=== PATIENT | female | born 1930 | race Caucasian/White ===

== ENCOUNTER 2017-03-02 11:08 | Inpatient (IN) | payer OTHER, MEDICARE ==
[2017-03-02 13:04] VITALS: BMI 26.9
[2017-03-02 13:30] LABS: BASOPHILS % (AUTO) 0.6 % (0.2-1.0); EOSINOPHILS % (AUTO) 0.2 % (0.9-2.9); HEMATOCRIT 32.4 % (36.0-47.0); HEMOGLOBIN 11.6 g/dL (12.0-16.0); LYMPHOCYTES # (AUTO) 0.8 X10^3/uL (1.3-2.9); LYMPHOCYTES % (AUTO) 14.1 % (21.0-51.0); MEAN CORPUSCULAR HEMOGLOBIN 29.3 pg (27.0-34.0); MEAN CORPUSCULAR HGB CONC 35.7 g/dL (33.0-35.0); MEAN CORPUSCULAR VOLUME 81.9 fL (80.0-100.0); MEAN PLATELET VOLUME 8.1 fL (7.4-11.0); MONOCYTES # (AUTO) 0.5 x10^3/uL (0.3-0.8); MONOCYTES % (AUTO) 9.5 % (0.0-13.0); NEUTROPHILS # (AUTO) 4.3 x10^3/uL (2.2-4.8); NEUTROPHILS % (AUTO) 75.6 % (42.0-75.0); PLATELET COUNT 156 X10^3/uL (150.0-450.0); RED BLOOD COUNT 3.95 X10^6/uL (3.5-5.4); RED CELL DISTRIBUTION WIDTH 14.8 % (11.6-16.5); WHITE BLOOD COUNT 5.7 X10^3/uL (3.6-10.0)
[2017-03-02] MEDS: NS 1000 ML 1,000 ML IV SCH (13:31)
[2017-03-02 13:43] LABS: ALANINE AMINOTRANSFERASE 30 Units/L (12-78); ALBUMIN 3.4 g/dL (3.4-5.0); ALKALINE PHOSPHATASE 74 Units/L (46-116); ASPARTATE AMINO TRANSFERASE 25 Units/L (15-37); BLOOD UREA NITROGEN 16 mg/dL (7-18); CALCIUM 8.8 mg/dL (8.5-10.1); CARBON DIOXIDE 26.9 mmol/L (21-32); CHLORIDE 93 mmol/L (98-107); CREATININE 1.19 mg/dL (0.55-1.02); GLUCOSE 108 mg/dL (65-99); SODIUM 130 mmol/L (136-145); eGFR BLACK RACES 55 (>60); eGFR NON BLACK RACES 46 (>60)
[2017-03-02] MEDS ORDERED: NS 100 ML IV 100 ML IV ONE (15:34)
--- NOTE | 2017-03-02 16:04 | RAD ---
HISTORY: Shortness of breath. Study: PA and lateral chest. Comparison: CT chest dated September 07, 2016. Findings: The trachea is midline. Postsurgical changes status post CABG. Multilead left chest cardiac pacemake r. The cardiac silhouette is unremarkable. Bibasilar scarring versus atelectasis. No obvious focal consolidation, pleural effusion, or pneumothorax.. The bony thorax is unremarkable. IMPRESSION: 1. No acute cardiopulmonary disease. Reported By:
--- NOTE | 2017-03-02 16:19 | CT ---
CT OF THE ABDOMEN AND PELVIS WITH CONTRAST HISTORY: Abdominal pain with fever and chills. Comparison: 09/07/2016 Technique: Multiple axial images of the abdomen and pelvis were obtained from the lung bases to the pubic symph ysis follow the administration of IV contrast. Dose reduction techniques including Automated Exposu re Control (AEC) and adjustment of mA and kV were utlized. Findings: The heart is normal in size. Severe diffuse Coronary and valvular calcifications. Lung bases are isael ar without focal consolidation, pleural effusion or pneumothorax. Liver and spleen are normal in size, enhancement characteristics and contour. No focal lesions. The portal vein is patent. No ductal dilitation. Gallbladder is present. No calcified gallstones or gall bladder wall thickening. The pancreas is unremarkable. Adrenal glands are normal. Kidneys enhance sy mmetrically without hydronephrosis or nephrolithiasis. Bilateral simple renal cysts The rectosigmoid colon is decompressed however does appear mildly thick walled with some hyperemia o f the associated vasculature.. No abnormal appearing mesenteric or retroperitoneal lymph nodes. No free fluid or fluid collections. The bladder is normal in appearance. Uterus and ovaries appear to be absent. No free fluid or abnorm al pelvic lymph nodes. No aggressive osseous lesions. IMPRESSION: 1. Possible inflammation of the rectosigmoid colon. Correlate clinically. 2. Severe coronary vascular disease. Reported By:
[2017-03-02 17:22] LABS: BILIRUBIN,URINE NEGATIVE (NEGATIVE); BLOOD/HEMOGLOBIN,URINE 4+ (NEGATIVE); GLUCOSE, URINE NEGATIVE (NEGATIVE); KETONES,URINE NEGATIVE (NEGATIVE); LEUKOCYTE ESTERASE ,URINE 3+ (NEGATIVE); NITRITES,URINE NEGATIVE (NEGATIVE); PROTEIN,URINE 1+ (NEGATIVE); UROBILINOGEN,URINE NORMAL (NORMAL)
[2017-03-02 17:57] LABS: APPEARANCE,URINE SLIGHTLY HAZY (CLEAR); BACTERIA,URINE TRACE /HPF (NEGATIVE); COLOR,URINE YELLOW (YELLOW); SQUAMOUS EPITHELIAL CELL,UR RARE /HPF (NEGATIVE)
[2017-03-02 19:21] LABS: CRYPTOSPORIDIUM PARVUM ANTIGEN NEGATIVE (NEGATIVE); GIARDIA LAMBLIA ANTIGEN NEGATIVE (NEGATIVE)
[2017-03-02 19:26] LABS: STOOL FOR WBC Few
[2017-03-03] MEDS: TYLENOL 325 MG TAB PO PRN ×2 (03:00→14:58)
[2017-03-03] MEDS: NS 1000 ML 1,000 ML IV SCH ×2 (03:01→22:44)
[2017-03-03 05:26] LABS: BASOPHILS % (AUTO) 0.5 % (0.2-1.0); EOSINOPHILS % (AUTO) 0.1 % (0.9-2.9); HEMATOCRIT 29.1 % (36.0-47.0); HEMOGLOBIN 10.6 g/dL (12.0-16.0); LYMPHOCYTES % (AUTO) 19.8 % (21.0-51.0); MEAN CORPUSCULAR HEMOGLOBIN 29.7 pg (27.0-34.0); MEAN CORPUSCULAR HGB CONC 36.4 g/dL (33.0-35.0); MEAN CORPUSCULAR VOLUME 81.6 fL (80.0-100.0); MEAN PLATELET VOLUME 8.6 fL (7.4-11.0); MONOCYTES # (AUTO) 0.7 x10^3/uL (0.3-0.8); MONOCYTES % (AUTO) 13.4 % (0.0-13.0); NEUTROPHILS # (AUTO) 3.4 x10^3/uL (2.2-4.8); NEUTROPHILS % (AUTO) 66.2 % (42.0-75.0); PLATELET COUNT 139 X10^3/uL (150.0-450.0); RED BLOOD COUNT 3.57 X10^6/uL (3.5-5.4); RED CELL DISTRIBUTION WIDTH 14.9 % (11.6-16.5); WHITE BLOOD COUNT 5.1 X10^3/uL (3.6-10.0)
[2017-03-03 05:29] LABS: ALANINE AMINOTRANSFERASE 24 Units/L (12-78); ALKALINE PHOSPHATASE 63 Units/L (46-116); ASPARTATE AMINO TRANSFERASE 20 Units/L (15-37); BLOOD UREA NITROGEN 14 mg/dL (7-18); CHLORIDE 94 mmol/L (98-107); COR CA(FOR HYPOALB) 8.8 mg/dL (8.5-10.1); COR NA(FOR HYPERGLY) 130 mmol/L (136-145); CREATININE 1.04 mg/dL (0.55-1.02); GLUCOSE 112 mg/dL (65-99); SODIUM 130 mmol/L (136-145); TOTAL PROTEIN 6.3 g/dL (6.4-8.2); eGFR BLACK RACES > 60 (>60); eGFR NON BLACK RACES 54 (>60)
[2017-03-03] MEDS ORDERED: K-LYTE EFFERVESCENT PO PRN (05:33)
[2017-03-03] MEDS ORDERED: K-DUR TAB 20 MEQ PO PRN (05:33)
[2017-03-03] MEDS ORDERED: K-RIDER 10 MEQ/NS 100 ML 10 MEQ/100 ML BAG IV PRN (05:33)
[2017-03-03] MEDS: POTASSIUM CHLORIDE LIQ 20 MEQ UDC PO PRN (05:46)
[2017-03-03 06:22] LABS: BAND NEUTROPHILS % 5 % (0-10); BASOPHILS % (MANUAL) 0 % (0-1)
[2017-03-03 06:23] LABS: PLATELET MORPHOLOGY COMMENT NORMAL (NORMAL)
[2017-03-03 07:14] LABS: ERYTHROCYTE SEDIMENTATION RATE 41 MM/HOUR (0-20)
[2017-03-03] MEDS ORDERED: DILTIAZEM HCL COATED BEADS 240 MG PO SCH (10:00)
[2017-03-03] MEDS ORDERED: PATIENT'S HOME MEDICATION (Citalopram Hydrobromide [Celexa 10 Mg] 10 MG) PO SCH (10:00)
[2017-03-03] MEDS: CIPRO IV 400 MG PREMIX* 400 MG/200 ML IV.SOLN. IV SCH ×2 (11:01→20:25)
[2017-03-03] MEDS: CARDIZEM CD 240 MG PO SCH (11:02)
[2017-03-03] MEDS: CELEXA PO SCH (11:02)
[2017-03-03] MEDS: LOMOTIL PO PRN ×2 (11:02→14:32)
[2017-03-03] MEDS: ZOCOR TAB 20 MG PO SCH (11:02)
[2017-03-03] MEDS ORDERED: ZOFRAN INJ 4 MG VIAL IVP PRN (12:48)
--- NOTE | 2017-03-03 14:06 | DR.H&P ---
H&P - History & Physical for Day of: H&P Date: 03/02/17 - Chief Complaint Chief Complaint: Diarrhea - Allergies Allergies/Adverse Reactions: Allergies Allergy/AdvReac Type Severity Reaction Status Date / Time MS Solis AdvReac Mild Verified 03/02/17 12:45 [From Phenergan] - History of Present Illness History of Present Illness: Patient is a 86yo female who presented to the hospital as a direct admit. Patient has been having diarrhea, fever and chill and appear dehydrated. Patient admitted for dehydration and diarrhea. We are going to start her on NS@75 and order labs as well as abdomen pelvis ct and further evaluate. - Past Medical History Past Medical History: Arthritis, Coronary Artery Disease, Depression, GERD Additional Medical History: pacemaker, valvular heart disease - Past Surgical History Surgical History: Hysterectomy - Family History Family Medical History: Diabetes Mellitus, Hypertension - Social History Does patient currently use any type of tobacco product: No Have you used tobacco products in the last 12 months: No Type of Tobacco Use: None Does any household member use tobacco: No Alcohol Use: None Drug Use: None - Medications Home Medications: Citalopram Hydrobromide [Celexa 10 mg] 10 mg PO DAILY 03/02/17 [History Confirmed 03/02/17] Diltiazem HCl Coated Beads [Diltiazem HCl ER] 240 mg PO DAILY 03/02/17 [History Confirmed 03/02/17] Hydrochlorothiazide [HYDROCHLOROTHIAZIDE 25 MG TAB *] 25 mg PO DAILY 03/02/17 [ History Confirmed 03/02/17] Metoprolol Tartrate [LOPRESSOR 50 MG *] 50 mg PO BID 03/02/17 [History Confirmed 03/02/17] Ropinirole HCl [REQUIP 0.25 MG *] 0.25 mg PO HS 03/02/17 [History Confirmed ] Simvastatin 20 mg PO DAILY 03/02/17 [History Confirmed 03/02/17] Sitagliptin Phosphate [JANUVIA 100 MG *] 100 mg PO DAILY 03/02/17 [History Confirmed 03/02/17] Warfarin Sodium 7.5 mg PO HS 03/02/17 [History Confirmed 03/02/17] - Review of Systems Constitutional: Fever, Weakness Eyes: No Symptoms Reported ENT: No Symptoms Reported Respiratory: No Symptoms Reported Cardiovascular: No Symptoms Reported Gastrointestinal: Diarrhea Genitourinary: No Symptoms Reported Musculoskeletal: No Symptoms Reported Skin: No Symptoms Reported Neurological: No Symptoms Reported - Physical Exam Vital Signs: Temperature 98.4 F Pulse Rate [Left Brachial] 70 Respiratory Rate 18 Blood Pressure [Left Arm] 128/59 O2 Sat by Pulse Oximetry 95 Oriented: Normal Eyes: Normal Ear: Normal Nose: Normal Throat: Normal Respiratory: Clear Throughout Cardiovascular: Normal : Normal Auscultation: Bowel Sounds: Increased Palpation: Normal Tenderness: Diffuse Skin: Decreased Turgur Musculoskeletal: Normal Psychiatric: Normal Mood Description: Calm, Appropriate Affect: Normal Speech Pattern: Clear, Appropriate - Assessment/Plan (1) Diarrhea Qualifiers: Diarrhea type: D Status: Acute Plan: NS@75 (2) Dehydration Status: Acute Plan: NS@75, CBC, CMP (3) Fever Qualifiers: Fever type: F Encounter type: E Status: Acute Plan: CBC, CMP, Abdomen CT
--- NOTE | 2017-03-03 14:24 | PCM.PROG ---
Progress Note - Progress Note for Day of Date: 03/03/17 - Subjective Subjective: Patient is a 86yo admitted for dehydration and diarrhea. Patient is on NS @ 75ml/hr. Upon rounds patient is on the toilet she states she is having to sit there for 30 minutes at the time and is very weak. We are going to start her on lomotil QID PRN Diarrhea and change her to a clear liquid diet. Vital signs this am 97.9, 70, 18, 95% on RA 122/60. Patient did spike a fever last night of 1012 we are going to start her on Cipro 400mg IV. Labs are within normal limits with the exception of Hgb 10.6, hct 29.1, MCHC 36.4, Plt Count 139 , Lymph% 19.8, Mcclain% 13.4, Lymph# 1.0, INR 1.67, Sodium 130, Potassium 2.8, Chloride 94, creatinine 1.04, est GFR 54, Glucose 112, CRP 98.20, Total Protein 6.3Albumin 3.0, Albumin/Globulin Ratio 0.9. Stool was positive for blood, negative for WBC, Cdiff, and O&P. Abdomen and pelvis CT shows inflammation of the rectosigmoid colon, sever coronary vascular disease. Patient is being started on the potassium replacement protocol for hypokalemia potassium of 2.8. We are also going to increase her fluids to 100ml/hr. In concern with the severe coronary vascular disease we will follow up on this out patient with ECHO and stress test. We will follow up with patient in the am with repeat labs. We are going to continue her home medications with the exception of her Januvia and Lopressor due to her dehydration. - Past Medical Family Social History Past Med/Fam/Surg Hx: No changes since H&P Allergies: Allergies MS Promethazine [From Phenergan] Adverse Reaction (Mild, Verified 03/02/17 12:45 ) - Review of Systems ROS: No change since H&P - Vital Signs and I&O's Vital Signs: 97.9, 70, 18, 95% on RA 122/60. Intake and Output: Intake & Output 03/01/17 03/02/17 03/03/17 03/04/17 11:59 11:59 11:59 11:59 Intake Total 1286 Output Total 450 Balance 836 - Physical Exam Oriented: Normal Eyes: Normal Ear: Normal Nose: Normal Throat: Normal Respiratory: Normal Cardiovascular: Normal : Normal Auscultation: Bowel Sounds: Increased Palpation: Normal Tenderness: Diffuse Skin: Decreased Turgur Musculoskeletal: Instability Psychiatric: Normal Mood Description: Calm, Appropriate Affect: Normal Speech Pattern: Clear, Appropriate - Laboratory and Diagnostics Result Diagrams: 03/03/17 03:25 03/03/17 08:44 Labs: 03/02/17 12:46 Urine,Clean Catch Urine Culture - Preliminary 03/02/17 18:20 Stool Stool Culture - Preliminary 03/02/17 18:20 Stool - Final Laboratory WBC 5.1 X10^3/uL (3.6-10.0) 03/03/17 03:25 RBC 3.57 X10^6/uL (3.5-5.4) 03/03/17 03:25 Hgb 10.6 g/dL (12.0-16.0) L 03/03/17 03:25 Hct 29.1 % (36.0-47.0) L 03/03/17 03:25 MCV 81.6 fL (80.0-100.0) 03/03/17 03:25 MCH 29.7 pg (27.0-34.0) 03/03/17 03:25 MCHC 36.4 g/dL (33.0-35.0) H 03/03/17 03:25 RDW 14.9 % (11.6-16.5) 03/03/17 03:25 Plt Count 139 X10^3/uL (150.0-450.0) L 03/03/17 03:25 Plt Count Comment Adequate (ADEQUATE) 03/03/17 03:25 MPV 8.6 fL (7.4-11.0) 03/03/17 03:25 Neut % 66.2 % (42.0-75.0) 03/03/17 03:25 Lymph % 19.8 % (21.0-51.0) L 03/03/17 03:25 Mcclain % 13.4 % (0.0-13.0) H 03/03/17 03:25 Eos % 0.1 % (0.9-2.9) L 03/03/17 03:25 Baso % 0.5 % (0.2-1.0) 03/03/17 03:25 Neut # 3.4 x10^3/uL (2.2-4.8) 03/03/17 03:25 Lymph # 1.0 X10^3/uL (1.3-2.9) L 03/03/17 03:25 Mcclain # 0.7 x10^3/uL (0.3-0.8) 03/03/17 03:25 Eos # 0.0 x10^3/uL (0.0-0.2) 03/03/17 03:25 Baso # 0.0 X10^3/uL (0.0-0.1) 03/03/17 03:25 Absolute Nucleated RBC 0.1 /100WBC 03/03/17 03:25 Total Counted 100 03/03/17 03:25 Neutrophils % (Manual) 61 % (39-76) 03/03/17 03:25 Band Neutrophils % 5 % (0-10) 03/03/17 03:25 Lymphocytes % (Manual) 25 % (13-43) 03/03/17 03:25 Monocytes % (Manual) 9 % (4-9) 03/03/17 03:25 Eosinophils % (Manual) 0 % (0-6) 03/03/17 03:25 Basophils % (Manual) 0 % (0-1) 03/03/17 03:25 Plt Morphology Comment Normal (NORMAL) 03/03/17 03:25 RBC Morphology Normal (NORMAL) 03/03/17 03:25 ESR 41 MM/HOUR (0-20) H 03/03/17 03:25 INR Target Range - 03/03/17 03:25 INR 1.67 (0.8-1.3) H 03/03/17 03:25 Sodium 130 mmol/L (136-145) L 03/03/17 03:25 Corrected Sodium 130 mmol/L (136-145) L 03/03/17 03:25 Potassium 3.9 mmol/L (3.5-5.1) 03/03/17 08:44 Chloride 94 mmol/L (98-107) L 03/03/17 03:25 Carbon Dioxide 22.0 mmol/L (21-32) 03/03/17 03:25 BUN 14 mg/dL (7-18) 03/03/17 03:25 Creatinine 1.04 mg/dL (0.55-1.02) H 03/03/17 03:25 Est GFR (MDRD) Af Amer > 60 (>60) 03/03/17 03:25 Est GFR (MDRD) Non-Af 54 (>60) L 03/03/17 03:25 Glucose 112 mg/dL (65-99) H 03/03/17 03:25 Calcium 8.0 mg/dL (8.5-10.1) L 03/03/17 03:25 Corrected Calcium 8.8 mg/dL (8.5-10.1) 03/03/17 03:25 Total Bilirubin 0.50 mg/dL (0.2-1.0) 03/03/17 03:25 AST 20 Units/L (15-37) 03/03/17 03:25 ALT 24 Units/L (12-78) 03/03/17 03:25 Alkaline Phosphatase 63 Units/L (46-116) 03/03/17 03:25 C-Reactive Protein 98.20 mg/L (0-3.0) H 03/03/17 03:25 Total Protein 6.3 g/dL (6.4-8.2) L 03/03/17 03:25 Albumin 3.0 g/dL (3.4-5.0) L 03/03/17 03:25 Globulin 3.3 g/dL (2.5-4.5) 03/03/17 03:25 Albumin/Globulin Ratio 0.9 Ratio (1.1-2.1) L 03/03/17 03:25 Specimen Type Clean catch urine 03/02/17 12:46 Urine Color Yellow (YELLOW) 03/02/17 12:46 Urine Appearance Slightly hazy (CLEAR) 03/02/17 12:46 Urine pH 5.0 (5.0 - 8.0) 03/02/17 12:46 Ur Specific Potter 1.010 (1.000-1.030) 03/02/17 12:46 Urine Protein 1+ (NEGATIVE) 03/02/17 12:46 Urine Glucose (UA) Negative (NEGATIVE) 03/02/17 12:46 Urine Ketones Negative (NEGATIVE) 03/02/17 12:46 Urine Occult Blood 4+ (NEGATIVE) 03/02/17 12:46 Urine Nitrite Negative (NEGATIVE) 03/02/17 12:46 Urine Bilirubin Negative (NEGATIVE) 03/02/17 12:46 Urine Urobilinogen Normal (NORMAL) 03/02/17 12:46 Ur Leukocyte Esterase 3+ (NEGATIVE) 03/02/17 12:46 Urine RBC 5-10 /HPF (NEGATIVE) 03/02/17 12:46 Urine WBC 15-20 /HPF (NEGATIVE) 03/02/17 12:46 Ur Squamous Epith Cells Rare /HPF (NEGATIVE) 03/02/17 12:46 Urine Bacteria Trace /HPF (NEGATIVE) 03/02/17 12:46 Ur Culture Indicated? Yes/culture set up 03/02/17 12:46 Stool Description 160 g. liquid/brown 03/02/17 18:20 Stl Occult Blood (IFOB) Positive (NEGATIVE) A 03/02/17 18:20 Stool for White Cells Few (None) 03/02/17 18:20 Stl C. diff Tox B Gene Negative (NEGATIVE) 03/02/17 18:20 Stl C. diff [id number] Negative (NEGATIVE) 03/02/17 18:20 Cryptosporid parvum Ag Negative (NEGATIVE) 03/02/17 18:20 E. histolytica Antigen Negative (NEGATIVE) 03/02/17 18:20 Giardia lamblia Ag Negative (NEGATIVE) 03/02/17 18:20 Radiology Reviewed: Yes - Plan (1) Diarrhea Status: Acute Qualifiers: Diarrhea type: D Plan: lomotil QID PRN (2) Dehydration Status: Acute Plan: NS@100, CBC, CMP (3) Fever Status: Acute Qualifiers: Fever type: F Encounter type: E Plan: CBC, CMP (4) Diabetes mellitus, type 2 Status: Acute Qualifiers: Diabetes mellitus complication status: D Diabetes mellitus complication detail: D Diabetic retinopathy severity: D Proliferative retinopathy type: P Diabetes mellitus macular edema: D Diabetes mellitus terminal operations supervisor insulin use : D Laterality: L Chronic kidney disease stage: C Plan: monitor blood glucose (5) Hyperlipidemia Status: Acute Qualifiers: Hyperlipidemia type: H Plan: continue crestor
[2017-03-03] MEDS: REQUIP PO SCH (20:25)
[2017-03-03] MEDS: COUMADIN TAB 7.5 MG PO SCH (20:25)
[2017-03-03 22:30] LABS: CRYPTOSPORIDIUM PARVUM ANTIGEN NEGATIVE (NEGATIVE); GIARDIA LAMBLIA ANTIGEN NEGATIVE (NEGATIVE)
[2017-03-03 22:33] LABS: STOOL FOR WBC Rare
[2017-03-04] MEDS: NS 1000 ML 1,000 ML IV SCH ×4 (00:22→15:07)
[2017-03-04] MEDS: LOMOTIL PO PRN ×2 (03:15→09:33)
[2017-03-04 05:51] LABS: BASOPHILS % (AUTO) 0.5 % (0.2-1.0); EOSINOPHILS % (AUTO) 0.8 % (0.9-2.9); HEMATOCRIT 27.5 % (36.0-47.0); HEMOGLOBIN 9.8 g/dL (12.0-16.0); LYMPHOCYTES # (AUTO) 0.8 X10^3/uL (1.3-2.9); LYMPHOCYTES % (AUTO) 20.3 % (21.0-51.0); MEAN CORPUSCULAR HEMOGLOBIN 29.3 pg (27.0-34.0); MEAN CORPUSCULAR HGB CONC 35.8 g/dL (33.0-35.0); MEAN CORPUSCULAR VOLUME 81.8 fL (80.0-100.0); MEAN PLATELET VOLUME 8.6 fL (7.4-11.0); MONOCYTES # (AUTO) 0.6 x10^3/uL (0.3-0.8); MONOCYTES % (AUTO) 14.1 % (0.0-13.0); NEUTROPHILS # (AUTO) 2.7 x10^3/uL (2.2-4.8); NEUTROPHILS % (AUTO) 64.3 % (42.0-75.0); PLATELET COUNT 117 X10^3/uL (150.0-450.0); RED BLOOD COUNT 3.36 X10^6/uL (3.5-5.4); RED CELL DISTRIBUTION WIDTH 15.1 % (11.6-16.5); WHITE BLOOD COUNT 4.2 X10^3/uL (3.6-10.0)
[2017-03-04 06:00] LABS: ALANINE AMINOTRANSFERASE 22 Units/L (12-78); ALBUMIN 2.6 g/dL (3.4-5.0); ALKALINE PHOSPHATASE 55 Units/L (46-116); ASPARTATE AMINO TRANSFERASE 24 Units/L (15-37); BLOOD UREA NITROGEN 8 mg/dL (7-18); CALCIUM 7.9 mg/dL (8.5-10.1); CARBON DIOXIDE 22.3 mmol/L (21-32); CHLORIDE 100 mmol/L (98-107); COR NA(FOR HYPERGLY) 133 mmol/L (136-145); CREATININE 0.78 mg/dL (0.55-1.02); GLUCOSE 116 mg/dL (65-99); SODIUM 133 mmol/L (136-145); TOTAL PROTEIN 5.8 g/dL (6.4-8.2); eGFR BLACK RACES > 60 (>60); eGFR NON BLACK RACES > 60 (>60)
[2017-03-04 06:24] LABS: BAND NEUTROPHILS % 11 % (0-10); PLATELET MORPHOLOGY COMMENT NORMAL (NORMAL)
[2017-03-04] MEDS: CELEXA PO SCH (08:57)
[2017-03-04] MEDS: CARDIZEM CD 240 MG PO SCH (08:57)
[2017-03-04] MEDS: CIPRO IV 400 MG PREMIX* 400 MG/200 ML IV.SOLN. IV SCH (08:58)
[2017-03-04] MEDS: ZOCOR TAB 20 MG PO SCH (08:58)
[2017-03-04] MEDS: POTASSIUM CHLORIDE LIQ 20 MEQ UDC PO PRN (10:31)
[2017-03-04] MEDS: FLAGYL TAB 500 MG PO SCH ×2 (15:22→22:05)
[2017-03-04] MEDS: BUTT CREAM (COMPOUND) TOP SCH ×3 (15:23→22:06)
[2017-03-04] MEDS: LOMOTIL PO SCH ×2 (17:00→22:05)
[2017-03-04] MEDS: CIPRO IV 200 MG PREMIX* 200 MG/100 ML BAG IV SCH (22:02)
[2017-03-04] MEDS: REQUIP PO SCH (22:05)
[2017-03-04] MEDS: QUESTRAN PO SCH (22:05)
[2017-03-04] MEDS: COUMADIN TAB 7.5 MG PO SCH (22:06)
[2017-03-05] MEDS: NS 1000 ML 1,000 ML IV SCH ×3 (03:05→21:16)
[2017-03-05 05:58] LABS: BASOPHILS % (AUTO) 0.6 % (0.2-1.0); EOSINOPHILS # (AUTO) 0.1 x10^3/uL (0.0-0.2); EOSINOPHILS % (AUTO) 1.7 % (0.9-2.9); HEMATOCRIT 26.8 % (36.0-47.0); HEMOGLOBIN 9.8 g/dL (12.0-16.0); LYMPHOCYTES % (AUTO) 20.4 % (21.0-51.0); MEAN CORPUSCULAR HEMOGLOBIN 30.2 pg (27.0-34.0); MEAN CORPUSCULAR HGB CONC 36.7 g/dL (33.0-35.0); MEAN CORPUSCULAR VOLUME 82.4 fL (80.0-100.0); MEAN PLATELET VOLUME 8.3 fL (7.4-11.0); MONOCYTES # (AUTO) 0.5 x10^3/uL (0.3-0.8); MONOCYTES % (AUTO) 11.3 % (0.0-13.0); NEUTROPHILS # (AUTO) 3.2 x10^3/uL (2.2-4.8); PLATELET COUNT 138 X10^3/uL (150.0-450.0); RED BLOOD COUNT 3.25 X10^6/uL (3.5-5.4); RED CELL DISTRIBUTION WIDTH 14.9 % (11.6-16.5); WHITE BLOOD COUNT 4.8 X10^3/uL (3.6-10.0)
[2017-03-05] MEDS: FLAGYL TAB 500 MG PO SCH ×3 (06:26→21:18)
[2017-03-05 06:38] LABS: ALANINE AMINOTRANSFERASE 23 Units/L (12-78); ALBUMIN 2.6 g/dL (3.4-5.0); ALKALINE PHOSPHATASE 57 Units/L (46-116); ASPARTATE AMINO TRANSFERASE 22 Units/L (15-37); BLOOD UREA NITROGEN 3 mg/dL (7-18); CARBON DIOXIDE 23.1 mmol/L (21-32); CHLORIDE 104 mmol/L (98-107); COR CA(FOR HYPOALB) 9.1 mg/dL (8.5-10.1); COR NA(FOR HYPERGLY) 136 mmol/L (136-145); CREATININE 0.72 mg/dL (0.55-1.02); GLUCOSE 113 mg/dL (65-99); SODIUM 136 mmol/L (136-145); TOTAL PROTEIN 5.8 g/dL (6.4-8.2); eGFR BLACK RACES > 60 (>60); eGFR NON BLACK RACES > 60 (>60)
[2017-03-05] MEDS: CIPRO IV 200 MG PREMIX* 200 MG/100 ML BAG IV SCH ×2 (08:36→21:16)
[2017-03-05] MEDS: QUESTRAN PO SCH ×2 (08:36→21:16)
[2017-03-05] MEDS: LOMOTIL PO SCH ×4 (08:37→21:18)
[2017-03-05] MEDS: CELEXA PO SCH (08:37)
[2017-03-05] MEDS: ZOCOR TAB 20 MG PO SCH (08:37)
[2017-03-05] MEDS: BUTT CREAM (COMPOUND) TOP SCH ×4 (08:37→21:19)
[2017-03-05] MEDS: CARDIZEM CD 240 MG PO SCH (08:37)
[2017-03-05] MEDS: COUMADIN TAB 7.5 MG PO SCH (21:18)
[2017-03-05] MEDS: REQUIP PO SCH (21:18)
[2017-03-06 05:21] LABS: ALANINE AMINOTRANSFERASE 21 Units/L (12-78); ALBUMIN 2.6 g/dL (3.4-5.0); ALKALINE PHOSPHATASE 59 Units/L (46-116); ASPARTATE AMINO TRANSFERASE 17 Units/L (15-37); BLOOD UREA NITROGEN 3 mg/dL (7-18); CALCIUM 7.9 mg/dL (8.5-10.1); CHLORIDE 104 mmol/L (98-107); CREATININE 0.65 mg/dL (0.55-1.02); GLUCOSE 108 mg/dL (65-99); SODIUM 137 mmol/L (136-145); TOTAL PROTEIN 5.7 g/dL (6.4-8.2); eGFR BLACK RACES > 60 (>60); eGFR NON BLACK RACES > 60 (>60)
[2017-03-06 05:47] LABS: BASOPHILS % (AUTO) 0.6 % (0.2-1.0); EOSINOPHILS # (AUTO) 0.1 x10^3/uL (0.0-0.2); EOSINOPHILS % (AUTO) 1.6 % (0.9-2.9); HEMATOCRIT 26.8 % (36.0-47.0); HEMOGLOBIN 9.6 g/dL (12.0-16.0); LYMPHOCYTES # (AUTO) 1.2 X10^3/uL (1.3-2.9); MEAN CORPUSCULAR HEMOGLOBIN 29.8 pg (27.0-34.0); MEAN CORPUSCULAR VOLUME 82.7 fL (80.0-100.0); MEAN PLATELET VOLUME 8.5 fL (7.4-11.0); MONOCYTES # (AUTO) 0.5 x10^3/uL (0.3-0.8); MONOCYTES % (AUTO) 9.4 % (0.0-13.0); NEUTROPHILS # (AUTO) 3.3 x10^3/uL (2.2-4.8); NEUTROPHILS % (AUTO) 65.4 % (42.0-75.0); PLATELET COUNT 150 X10^3/uL (150.0-450.0); RED BLOOD COUNT 3.23 X10^6/uL (3.5-5.4); RED CELL DISTRIBUTION WIDTH 14.8 % (11.6-16.5)
[2017-03-06] MEDS: FLAGYL TAB 500 MG PO SCH (05:55)
[2017-03-06] MEDS: POTASSIUM CHLORIDE LIQ 20 MEQ UDC PO PRN ×2 (06:03→06:07)
[2017-03-06] MEDS: CIPRO IV 200 MG PREMIX* 200 MG/100 ML BAG IV SCH (09:04)
[2017-03-06] MEDS: LOMOTIL PO SCH (09:04)
[2017-03-06] MEDS: CELEXA PO SCH (09:04)
[2017-03-06] MEDS: CARDIZEM CD 240 MG PO SCH (09:05)
[2017-03-06] MEDS: QUESTRAN PO SCH (09:06)
[2017-03-06] MEDS: ZOCOR TAB 20 MG PO SCH (09:06)
[2017-03-06] MEDS: NS 1000 ML 1,000 ML IV SCH (09:16)
[2017-03-06] MEDS: BUTT CREAM (COMPOUND) TOP SCH (09:16)
--- NOTE | 2017-03-06 11:40 | DR.CARTERD ---
- Discharge Summary for: Discharge Summary for Date of:: 03/06/17 - Admission Date Date of Admission: 03/02/17 - Admission Diagnoses Admission Diagnosis: Diarrhea. Dehydration. Fever. Chills. Valvular Heart Disease. GERD. Depression. Diabetes Mellitus Type 2. Hypertension - Discharge Date Discharge Date: 03/06/17 - Discharge Diagnoses Discharge Diagnosis: Stool positive for moderate amount WBC Diarrhea Dehydration Fever Chills Valvular Heart Disease GERD Depression Diabetes Mellitus Type 2 Hypertension - Hospital Course Hospital Course: Patient is an 86yo female who was admitted with diarrhea and dehydration. Patient was started on IVF and IV Antibiotics Cipro and Flagyl. Patient has an Abdomen/Pelvis CT which showed possible inflammation of the rectosigmoid colon, severe coronary vascular disease. Patient was started on lomotil PRN and diarrhea continued to persist so she was changed to lomotil scheduled which improved her diarrhea. Patients stool also showed a moderate amount of WBC. Patient also experienced some hypokalemia for which she was started on potassium replacement protocol. Patient states she is feeling wonderful this am and is ready to go home. We are going to discharge her home in stable condition to follow up in 1 week she is to continue her home medications with the addition of Cipro, lomotil and Zofran. Vital signs this am 98.1, 72, 20, 93% , 131/63. Labs are within normal limits with the exception of RBC 3.23, Hgb 9.6 , Hct 26.8, MCHC 36.0, Lymph# 1.2, INR 3.14, Potassium 3.3, BUN 3, Glucose 108, Calcium 7.9, Total protein 5.7, Albumin 2.6, Albumin/Globulin Ratio 0.8 Labs: Labs are within normal limits with the exception of RBC 3.23, Hgb 9.6, Hct 26.8 , MCHC 36.0, Lymph# 1.2, INR 3.14, Potassium 3.3, BUN 3, Glucose 108, Calcium 7.9, Total protein 5.7, Albumin 2.6, Albumin/Globulin Ratio 0.8 - Discharge Medications Discharge Medications: Citalopram Hydrobromide [Celexa 10 mg] 10 mg PO DAILY 03/02/17 [History] Diltiazem HCl Coated Beads [Diltiazem HCl ER] 240 mg PO DAILY 03/02/17 [History] Hydrochlorothiazide [HYDROCHLOROTHIAZIDE 25 MG TAB *] 25 mg PO DAILY 03/02/17 [ History] Metoprolol Tartrate [LOPRESSOR 50 MG *] 50 mg PO BID 03/02/17 [History] Ropinirole HCl [REQUIP 0.25 MG *] 0.25 mg PO HS 03/02/17 [History] Simvastatin 20 mg PO DAILY 03/02/17 [History] Sitagliptin Phosphate [JANUVIA 100 MG *] 100 mg PO DAILY 03/02/17 [History] Warfarin Sodium 7.5 mg PO HS 03/02/17 [History] Ciprofloxacin HCl [CIPRO 500 MG TAB *] 500 mg PO Q12H #20 tab 03/06/17 [Rx] Diphenoxylate/Atropine [Lomotil] 1 tab PO TID PRN #30 tab 03/06/17 [Rx] Ondansetron HCl [Zofran Tab 4 mg] 4 mg PO Q8H PRN #30 tab 03/06/17 [Rx] - Discharge Disposition Discharge Disposition: Home with follow up in 1 week
[2017-03-06 13:46] VITALS: BP 128/59
== END 2017-03-06 13:40 | disposition home health service (06) | DRG 392 ==
LOC: MED/SURG 11:08 → UNDOADMOB 11:08 → MED/SURG 12:01 → OBSVTOIN 03-04 09:00
PROVIDERS: ADMIT Internal Medicine; ATTEND Internal Medicine
DX: R19.7 Diarrhea, unspecified (principal); E86.0 Dehydration; B96.89 Other specified bacterial agents as the cause of diseases classified elsewhere; D64.89 Other specified anemias; R79.1 Abnormal coagulation profile; E87.6 Hypokalemia; R50.9 Fever, unspecified; E11.65 Type 2 diabetes mellitus with hyperglycemia; R19.5 Other fecal abnormalities; I25.10 Atherosclerotic heart disease of native coronary artery without angina pectoris; K21.9 Gastro-esophageal reflux disease without esophagitis; Z95.0 Presence of cardiac pacemaker; E78.2 Mixed hyperlipidemia; R53.1 Weakness; F32.89 Other specified depressive episodes; I10 Essential (primary) hypertension; R10.84 Generalized abdominal pain; R11.0 Nausea
CPT/HCPCS: 36415; 71020; 74177; 80053; 81001; 82270; 83735; 84132; 85025; 85610; 85652; 86140; 87040; 87045; 87086; 87088; 87186; 87205; 87328; 87329; 87336; 87427; 87493; 87899; 99231; A4222; G0378; J0744; J2405